=== PATIENT | male | born 1980 | race Caucasian/White ===

== ENCOUNTER 2017-08-27 15:11 | Emergency (ER) | payer MEDICAID, SELFPAY ==
[2017-08-27 15:12] VITALS: BP 152/74; PULSE 65; RESP 16; TEMP 36.7; O2SAT 98; BMI 25.1
[2017-08-27 15:43] VITALS: BP 115/74; BP 116/76; BP 122/79; PULSE 61; PULSE 64; PULSE 68
[2017-08-27] MEDS: 0.9% Normal Saline 1,000 ML 150 ML IV (15:50)
[2017-08-27 16:11] LABS: Absolute Lymphocyte Count 1.37 X10^3/ul (0.83-4.51); Absolute Neutrophil Count 5.1 X10^3/uL (2.0-7.7); Basophil# 0.03 X10^3/uL; Basophil% 0.4 % (0-1); Eosinophil# 0.05 X10^3/uL; Eosinophils% 0.7 % (0-5); Hematocrit 41.5 % (40-54); Lymphocyte # 1.37 X10^3/ul (4.0); Lymphocyte % 19.2 % (19-41); Mean Corp Hgb Conc 36.1 g/gl (32-36); Mean Corpuscular Hgb 32.8 pg (27.0-32.0); Mean Corpuscular Volume 90.8 fL (80-94); Mean Platelet Vol. 10.1 fl (6.2-12.0); Monocyte# 0.53 X10^3/uL; Monocyte% 7.4 % (0-10); Neutrophil # 5.13 X10^3/uL (2.7-7.7); Neutrophil % 72.2 % (47-70); Platelet Count 264 K/mm3 (150-450); RBC Distribution Width CV 11.4 % (11.6-14.6); RBC Distribution Width SD 37.7 fl (35.1-43.9); Red Blood Count 4.57 M/mm3 (4.6-6.2); White Blood Count 7.1 K/mm3 (4.4-11.0)
--- NOTE | 2017-08-27 16:11 | CT_ITS ---
STUDY: CT BRAIN WITHOUT CONTRAST REASON FOR EXAM: Male, 37 years old. Dizziness RADIATION DOSAGE (If Supplied By Facility): CTDIvol = ( 60.81 ) mGy, DLP = ( 1089.89 ) mGycm TECHNIQUE: Transaxial CT imaging of the brain was performed without administration of intravenous contrast material. Individualized dose optimization techniques were used for this CT. COMPARISON: None. FINDINGS: Normal soft tissue structures. Normal calvarium. Normal size ventricles and extra-axial spaces for the patient's age. Normal white matter tracts of the cerebral hemispheres. Normal basal ganglia and thalami. Normal brainstem. Normal cerebellum. There is no intracranial hemorrhage. There are no findings of an acute ischemic infarction. Normal visualized paranasal sinuses. CT/Brain/Head without Contrast IMPRESSION: Normal unenhanced CT scan of the brain. Electronically Signed: Shyam Aguilar MD at 16:32 EDT , Service support ,
[2017-08-27 16:19] LABS: POSITIVE COUNT NO; POSITIVE DIFFERENTIAL NO; POSITIVE MORPHOLOGY NO
[2017-08-27 16:23] LABS: Anion Gap 6 (5-15); BUN 10 mg/dL (7-18); BUN/Creat Ratio 10.3 RATIO (10-20); Calcium,Total 9.1 mg/dL (8.5-10.1); Chloride 108 mmol/L (98-107); Creatinine, Serum 0.97 mg/dL (0.70-1.30); EST Glomerular Filtration Rate 93 mL/min (>60); Est Glom Filt Rate - Afr Amer 113 mL/min (>60); Estimated Creatinine Clearance 105.28 ml/min; Glucose 97 mg/dL (74-106); Potassium 3.7 mmol/L (3.5-5.1); Sodium Level 140 mmol/L (136-145)
[2017-08-27 16:27] LABS: Amphetamine Urine VISTA NEGATIVE (<1000 ng/mL); Barbiturate Urine VISTA NEGATIVE (< 200 ng/mL); Benzodiazepine Urine VISTA NEGATIVE (< 200 ng/mL); Cocaine Urine VISTA NEGATIVE (< 300 ng/mL); Ecstacy Urine VISTA NEGATIVE (< 500 ng/mL); Methadone Urine VISTA NEGATIVE (< 300 ng/mL); PCP Urine VISTA NEGATIVE (< 25 ng/mL); THC Urine VISTA POSITIVE (< 50 ng/mL); Vista UDS pH Range 6
--- NOTE | 2017-08-27 16:46 | ED.DCSUM_ITS ---
- ER Visit Summary Date of Service: 08/27/17 Chief Complaint: [Dizziness and possible seizure] History of Present Illness: The patient is a 37 M [presents to the emergency department with complaint of dizziness. Patient states that last weekend patient had had an argument with his live-in girlfriend and went out with some friends who offered him crystal meth. Patient normally does not use illicit drugs other than occasional marijuana. Patient states that he did 7-10 lines of the crystal meth and then was unable to sleep all night. The next day he was not feeling well and complained of dizziness. His girlfriend noted that at one point he got up to plug in his phone and his arm started twitching and flapping. Patient laid on the ground and twitched for several minutes. Afterwards he was somewhat confused but complained of his hands and fingers being curled in and he remembers crying. Patient did not soil himself. Patient did not bite his tongue or the inside of his mouth. Patient does not have a history of seizures. Yesterday patient felt really good however today he had some episodes of feeling somewhat lightheaded and dizzy. Patient states that he just does not quite feel right and wanted to get checked out because he is not sure if he is just really anxious or stressed out about what may have happened.] Physical Examination: [HEENT-PERRLA, EOMI. Cranial nerves II through XII grossly intact. TMs clear. Mucous membranes moist. No adenopathy. Cardiovascular-regular rate and rhythm without murmur or ectopy Lungs-clear to auscultation, chest wall stable without crepitus or subcu emphysema Abdomen-normoactive bowel sounds, soft, nontender, no rebound or rigidity, no peritoneal signs. Neuro [id number] and heel perez testing within normal limits, negative Romberg, negative pronator drift, fundi benign Extremities-intact ?4, normal range of motion, normal pulses, atraumatic] Test Results: [CT scan of the brain without contrast was normal. CBC with differential was normal. Chemistries were normal. Toxicology screen was positive only for marijuana. Orthostatic vital signs were negative.] Emergency Department Course and Treatment: [None indicated]. At this point I am not convinced the patient had a seizure. It is possible he may have had a vagal episode and possibly syncopal episode. Patient has not had another episode like that. Patient advised to discontinue illicit drug use. Treatment Plan: [Patient advised to follow-up with his primary care physician within the next 3-5 days. Patient will be given a referral to neurology as well should he have another similar episode.] Disposition: [Discharged home in stable condition. Patient advised to return if repeat episode or condition should worsen in any way.] Impression: [Dizziness-etiology uncertain Illicit drug use ] This note was generated with [employer] dictation software. It may contain incorrect words, spelling, and punctuation that were not noted in review of the chart prior to signing ED Disposition - Plan for ED Patient: Chief Complaint: General Illness Referrals: Roger Jerez MD [Primary Care Provider] -
--- NOTE | 2017-08-27 16:46 | ED.DEP ---
ED Disposition - Plan for ED Patient: Chief Complaint: General Illness Instructions: ED Dizziness [facility], ED Drug Abuse General Referrals: Roger Jerez MD [Primary Care Provider] - 5-7 Days Domingo Cain MD [STAFF PHYSICIAN] - 5-7 Days
== END 2017-08-27 17:02 | disposition home or self-care (01) ==
LOC: ED 15:32
PROVIDERS: Emergency Provider Emergency Medicine; Family Provider Family Medicine; PCP Family Medicine
DX: R42 Dizziness and giddiness (principal); F15.90 Other stimulant use, unspecified, uncomplicated; F12.90 Cannabis use, unspecified, uncomplicated
CPT/HCPCS: 70450; 80048; 80307; 85025; 96360; 99284; J7030; A4216

== ENCOUNTER → 2018-09-14 | Outpatient (CLI) | payer MEDICAID, SELFPAY ==
--- NOTE | 2018-09-14 08:15 | RAD_ITS ---
PROCEDURE: Fluoroscopic guided Hip Injection DATE: September 14, 2018. INDICATION: Male, 38 years old. Chronic hip pain. PHYSICIAN: Marcus Tracy M.D. MEDICATIONS: 40 mg of Kenalog and 4 cc of 1% lidocaine. 2% Lidocaine administered subcutaneously for local anesthesia. ACCESS SITE: Right hip. NEEDLE: 22-gauge spinal needle. FLUOROSCOPY TIME (if supplied): (0:30) minutes/seconds FINDINGS: The risks, benefits, and alternatives to the procedure were explained to the patient. The specific risks of bleeding, infection, and neurovascular injury were detailed and accepted. Witnessed informed consent was obtained. A 22-gauge spinal needle was positioned under radiographic fluoroscopic localization. Approximately 2 cc of Isovue-300 instilled for localization purposes. Medication was then injected. The patient tolerated the procedure well without any immediate complications. RAD/Inj/Asp Eric Jt Should/Hip/Knee IMPRESSION: 1. Successful fluoroscopic guided hip injection. Electronically Signed: Marcus Tracy, at 10:41 EDT , Service support ,
== END | disposition home or self-care (01) ==
LOC: RAD 08:09
PROVIDERS: Family Provider Family Medicine; PCP Family Medicine; Referring Provider Family Medicine; Visit Provider Family Medicine
DX: Q65.89 Other specified congenital deformities of hip (principal)
CPT/HCPCS: 20610; 77002; Q9965

== ENCOUNTER 2021-01-22 09:36 | Emergency (ER) | payer MEDICAID, SELFPAY ==
[2021-01-22 09:36] VITALS: BP 124/85; PULSE 67; RESP 16; TEMP 36.8; O2SAT 100; BMI 25.1
--- NOTE | 2021-01-22 10:00 | CT_ITS ---
STUDY: CT CERVICAL SPINE WITHOUT CONTRAST REASON FOR EXAM: Male, 40 years old. Hyperextension injury, BUE neuro sx RADIATION DOSAGE (If Supplied By Facility): CTDIvol = ( 22.63 ) mGy, DLP = ( 538.35 ) mGycm TECHNIQUE: High resolution transaxial imaging was performed without contrast material. Sagittal and coronal images were reconstructed. Individualized dose optimization techniques were used for this CT. COMPARISON: None FINDINGS: Normal craniovertebral junction. Normal anterior atlantoaxial articulation. Normal odontoid process. There is straightening of the normal cervical lordosis. Normal vertebral bodies and posterior osseous elements. C2-3: Normal endplates. Normal disc height and morphology. Normal central canal and intervertebral neuroforamina. C3-4: Normal endplates. Normal disc height and morphology. Normal central canal and intervertebral neuroforamina. C4-5: Mild degree of disc space narrowing. Anterior spondylosis. Uncovertebral arthrosis worse on the right side with a mild degree of right neural foraminal stenosis. C5-6: Mild degree of disc space narrowing. Mild degree of uncovertebral arthrosis. No significant neural foraminal stenosis is seen. C6-7: Normal endplates. Normal disc height and morphology. Normal central canal and intervertebral neuroforamina. C7-T1: Normal endplates. Normal disc height and morphology. Normal central canal and intervertebral neuroforamina. Normal visualized soft tissue structures. CT/Spine Cervical without Contras IMPRESSION: Multilevel degenerative changes, as described above. Straightening of the normal cervical lordosis. Electronically Signed: Marcus Tracy MD at 10:30 EDT , Service support ,
--- NOTE | 2021-01-22 10:00 | EDS_ITS ---
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 He was dazed from the blunt injury but does not think he lost consciousness. He was by himself. Ever since, he has felt paresthesias that are very painful on the dorsum of both forearms down to fingers 3 and 4 symmetrically bilaterally. It is painful just to barely touch these areas of the skin from the elbow down. 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 He has had no problems walking. The pain in his neck is very mild near the base of his neck. PFSH PFSH no medical history Home Medications gabapentin 100 mg PO TID #90 cap 01/22/21 [Rx Last Taken Unknown] Allergy/AdvReac Type Severity Reaction Status Date / Time Penicillins Allergy Rash Verified 01/22/21 09:39 Social History Smoking Status: Never smoker ROS ROS ED Constitutional Constitutional ED: Denies chills or fever(s) Eyes Eyes: Denies change in vision or diplopia ENT ENT ED: Denies rhinorrhea or sore throat Cardiovascular Cardiovascular: Denies chest pain or palpitations Respiratory/Chest Respiratory/Chest: Denies cough or dyspnea Gastrointestinal Gastrointestinal: Denies abdominal pain, diarrhea, nausea or vomiting Genitourinary Genitourinary ED: Denies dysuria or hematuria Musculoskeletal Musculoskeletal: Reports neck pain; Denies back pain Integumentary Denies abscess or rash Neurologic Neurologic: Reports as per HPI, paresthesias and weakness; Denies headache(s) Psychiatric Psychiatric: Denies anxiety or suicidal thoughts EXAM Physical Exam Const Vital Signs: 01/22/21 09:36 01/22/21 11:34 Temperature 98.3 F Temperature Source Temporal Pulse Rate 67 Respiratory Rate 16 Respiratory Effort Normal Respiratory Depth Normal Respiratory Pattern Normal Blood Pressure 124/85 H Blood Pressure Mean 98 Pulse Ox 100 Oxygen Delivery Method Room Air Room Air Positive well nourished and well developed General Appearance ED: well developed and NAD HEENT Reports moist mucous membranes normocephalic and atraumatic Eyes PERRL and EOMs intact bilaterally Neck full ROM and supple Neck Narrative: Mild tenderness base of cervical spine, no thoracic or lumbar midline tenderness. No paraspinal tenderness. No step-off or obvious signs of trauma. Resp normal respiratory effort and clear to auscultation bilaterally Cardio regular rate, regular rhythm and no murmurs GI non-tender and non-distended Auscultation: normoactive bowel sounds Palpation: soft Back/Spine no CVA tenderness General Back: other FROM Extremity normal to inspection Extremity Narrative: Superficial tenderness at the skin dorsal both forearms into fingers 3 and 4 bilaterally, skin normal in appearance. No bony tenderness. Full range of motion throughout all 4 extremities. General Extremety ED: Yes tenderness; Negative for edema or pulses abnormal General Extremity: Negative for edema or pulses abnormal Neuro oriented x3 and CN's II-XII intact bilaterally Neuro Narrative: Patient has decreased sensation along with tenderness in a C7 distribution bilaterally mostly from the elbows down distally. He has some weakness in technical supervisor and in triceps bilaterally symmetrically, 4+ for those groups. Otherwise strength is normal throughout. Able to stand on his toes and heels without difficulty. Negative Romberg. Sensorium / Orientation: awake and alert Skin no rashes or lesions noted and no wounds MDM MDM MDM Narrative Medical decision making narrative: Initially CT was performed, shows no fracture. I then discussed with radiologist who approved a stat MRI given his neurologic findings, this shows no focal lesion in the cord, but a osteophyte complex at C5-6 with the findings as below. I discussed with Dr. Grissom on for spine, he recommended sending the patient home after a dose of IV Decadron, on gabapentin 100 mg 3 times daily with close outpatient follow-up. Discussed with the patient, this will be the plan. Radiography Diagnostic Testing: Radiology Impression Cervical Spine CT 01/22/21 10:00 IMPRESSION: Multilevel degenerative changes, as described above. Straightening of the normal cervical lordosis. Electronically Signed: Marcus Tracy MD at 10:30 EDT , Service support , Cervical Spine MRI 01/22/21 10:44 IMPRESSION: Focal degenerative disc disease asymmetric to the right at C5/C6 as described above. Electronically Signed: Geo Ortez MD at 12:57 EDT Tel , Service support , STUDY: MRI CERVICAL SPINE WITHOUT CONTRAST REASON FOR EXAM: Male, 40 years old. neck injury, numbness/weakness BUE TECHNIQUE: Standardized fat and water weighted pulse sequences were obtained in the sagittal and axial planes. COMPARISON: CT earlier today FINDINGS: Normal foramen magnum and brainstem-cervical cord junction. Normal craniovertebral junction. Normal anterior atlantoaxial articulation. Normal odontoid process. Normal cervical lordosis. Normal vertebral bodies and posterior osseous elements. C2-3: Normal endplates. Normal disc height, signal and morphology. Normal central canal and intervertebral neural foramina. C3-4: Normal endplates. Normal disc height, signal and morphology. Normal central canal and intervertebral neural foramina. C4-5: Normal endplates. Normal disc height, signal and morphology. Normal central canal and intervertebral neural foramina. C5-6: Moderate bilobed disc osteophyte complex asymmetric to the right produces moderate spinal stenosis with effacement of the right hemicord and moderate bilateral neural foraminal stenosis. C6-7: Normal endplates. Normal disc height, signal and morphology. Normal central canal and intervertebral neural foramina. C7-T1: Normal endplates. Normal disc height, signal and morphology. Normal central canal and intervertebral neural foramina. Normal cervical cord. Normal visualized soft tissue structures. 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
--- NOTE | 2021-01-22 10:44 | MRI_ITS ---
STUDY: MRI CERVICAL SPINE WITHOUT CONTRAST REASON FOR EXAM: Male, 40 years old. neck injury, numbness/weakness BUE TECHNIQUE: Standardized fat and water weighted pulse sequences were obtained in the sagittal and axial planes. COMPARISON: CT earlier today FINDINGS: Normal foramen magnum and brainstem-cervical cord junction. Normal craniovertebral junction. Normal anterior atlantoaxial articulation. Normal odontoid process. Normal cervical lordosis. Normal vertebral bodies and posterior osseous elements. C2-3: Normal endplates. Normal disc height, signal and morphology. Normal central canal and intervertebral neural foramina. C3-4: Normal endplates. Normal disc height, signal and morphology. Normal central canal and intervertebral neural foramina. C4-5: Normal endplates. Normal disc height, signal and morphology. Normal central canal and intervertebral neural foramina. C5-6: Moderate bilobed disc osteophyte complex asymmetric to the right produces moderate spinal stenosis with effacement of the right hemicord and moderate bilateral neural foraminal stenosis. C6-7: Normal endplates. Normal disc height, signal and morphology. Normal central canal and intervertebral neural foramina. C7-T1: Normal endplates. Normal disc height, signal and morphology. Normal central canal and intervertebral neural foramina. Normal cervical cord. Normal visualized soft tissue structures. MRI/Spine Cervical (Routine) IMPRESSION: Focal degenerative disc disease asymmetric to the right at C5/C6 as described above. Electronically Signed: Geo Ortez MD at 12:57 EDT Tel , Service support ,
[2021-01-22] MEDS: dexAMETHasone 4 MG Tablet PO (13:45)
[2021-01-22 13:47] VITALS: BP 132/67; PULSE 71; RESP 16; O2SAT 98
== END 2021-01-22 13:48 | disposition home or self-care (01) ==
PROVIDERS: Emergency Provider Emergency Medicine; PCP Family Medicine
DX: S14.126A Central cord syndrome at C6 level of cervical spinal cord, initial encounter (principal); W01.198A Fall on same level from slipping, tripping and stumbling with subsequent striking against other object, initial encounter
CPT/HCPCS: 72125; 72141; 99283

== ENCOUNTER 2024-02-21 15:56 | Emergency (ER) | payer MEDICAID, SELFPAY ==
[2024-02-21 15:57] VITALS: BP 100/61; PULSE 66; RESP 19; TEMP 36; O2SAT 97; BMI 20.4
--- NOTE | 2024-02-21 16:56 | EX.ED.VIS.UR ---
HPI HPI - URI History of Present Illness Chief Complaint: Ear Problem Detail of Chief Complaint: Cannot hear out of his left ear. Began today. Informant: patient Onset/Context/Timing Onset: Today Context: Gradual Onset Timing: Continuous Current Severity: Mild Maximum Severity: Mild Narrative Narrative: 43-year-old male no seen past medical history. Says he cannot hear out of his left ear today. Prior history with cerumen impaction. Denies any trauma. No earache. No sore throat. No other complaints. Prior similar symptoms: Yes Recent Illness/Hospitalization: No ROS ROS ED ROS Narrative Denies recent illness. Constitutional Constitutional ED: Denies fever(s) Eyes Eyes: Denies blurry vision ENT ENT ED: Denies ear pain, rhinorrhea or sore throat Cardiovascular Cardiovascular: Denies chest pain Respiratory/Chest Respiratory/Chest: Denies cough Gastrointestinal Gastrointestinal: Denies abdominal pain Genitourinary Genitourinary ED: Denies dysuria Musculoskeletal Musculoskeletal: Denies arthralgias Integumentary Denies abscess Neurologic Neurologic: Denies headache(s) Psychiatric Psychiatric: Denies anxiety Endocrine Endocrinology: Denies cold intolerance Hematologic/Lymphatic Hematologic/Lymphatic: Denies easy bleeding Allergic/Immunologic Allergic/Immunologic ED: Denies mouth swelling PFSH PFSH no medical history Home Medications ?Medication ?Instructions ?Recorded ?Last Taken ?Type gabapentin 100 mg capsule 100 mg PO TID #90 caps 01/22/21 Unknown Rx Allergy/AdvReac Type Severity Reaction Status Date / Time Penicillins Allergy Rash Verified 02/21/24 15:58 no surgical history Social History Smoking Status: Never smoker EXAM Physical Exam Narrative Exam Narrative: 43-year-old male vital signs stable afebrile. No acute distress. H EENT exam right ear canal unremarkable minimal wax. Posterior pharynx normal. No erythema or exudate. Left ear canal is obstructed by sticky wax. Canal otherwise unremarkable I cannot see the eardrum due to the wax. Nontender. Neck nontender no lymphadenopathy. Lungs clear. Heart regular rate and rhythm. Otherwise exam unremarkable. Const Vital Signs: 02/21/24 15:57 Temperature 96.8 F L Temperature Source Temporal Pulse Rate 66 Respiratory Rate 19 H Blood Pressure 100/61 Blood Pressure Mean 74 Pulse Ox 97 Oxygen Delivery Method Room Air Positive well nourished and well developed; Negative for obese, cachectic or contractures General Appearance ED: well developed and NAD; Negative for cachectic, contractures, cyanotic, diaphoretic or pallor Nutritional Appearance: Negative for cachectic or obese HEENT Reports moist mucous membranes HEENT Narrative: Left ear canal obstructed by wax. normocephalic and atraumatic; Negative for scalp tenderness Face and Sinus: Negative for sinus tenderness or maxillary instability Throat: posterior oropharynx normal Eyes PERRL and EOMs intact bilaterally Neck no lymphadenopathy, supple, no meningeal signs and no JVD Resp normal respiratory effort and clear to auscultation bilaterally Cardio S1 normal heart sound, S2 normal heart sound and no murmurs Rate: regular rate Rhythm: regular rhythm GI non-tender, non-distended and no masses Inspection: Negative for abdominal distention Auscultation: normoactive bowel sounds Palpation: soft; Negative for tender, guarding, hepatomegaly, splenomegaly or mass Back/Spine no CVA tenderness and normal ROM General Back: Negative for CVA tenderness Cervical Spine: Negative for cervical spine tenderness Thoracic Spine / Upper Back: Negative for thoracic spinal tenderness Lumbar Spine / Lower Back: Negative for lumbar spinal tenderness Sacrum: Negative for tenderness Extremity normal to inspection and full ROM General Extremety ED: Negative for cyanosis or tenderness General Extremity: Negative for cyanosis Neuro oriented x3 and CN's II-XII intact bilaterally Sensorium / Orientation: alert, oriented to person, oriented to place and oriented to time; Negative for orientation impaired or lethargic Motor Exam: strength 5/5 throughout Psych mental status grossly normal Appearance: Negative for other Attitude: No agitated Mood & Affect: Negative for depressed, anxious or tearful Skin General Skin Exam: Negative for jaundice or pallor Lesions: no lesions Rashes: no rashes MDM MDM MDM Narrative Medical decision making narrative: 43-year-old male left earwax impaction. We discharged home with Debrox. It is the sticky wax I do not think this will irrigate well. Use Debrox at home. Follow-up if it does not resolve. History & Record Review Discussion w/independent historian: Patient Discharge Plan Triage Chief Complaint: Ear Problem ED Provider: Helder Adame Dx/Rx/DC Orders Clinical Impression: Cerumen impaction Instructions: Impacted Earwax Prescriptions: No Action gabapentin 100 mg capsule 100 mg PO TID Qty: 90 0RF Primary Care Provider: Roger Jerez Referrals: Roger Jerez MD [Primary Care Provider] - Junito Grover MD [Med Staff - Active Staff] - 3-5 Days if not improving Activity Restrictions/Additional Instructions: Use the Debrox eardrops to your left ear 3 to 5 drops 3-4 times a day. This should help dry up the wax up and come out. If it did not improve follow-up with ENT and they can irrigated out. Print Language: Macedonian Disposition Disposition: Home, Self Care
[2024-02-21] MEDS: Carbamide Peroxide 15 ML Bottle 5 DRP OTIC (17:06)
[2024-02-21 17:08] VITALS: BP 110/76; PULSE 69; RESP 14; TEMP 36.1; O2SAT 100
== END 2024-02-21 17:10 | disposition home or self-care (01) ==
LOC: ED 17:00
PROVIDERS: Emergency Provider Emergency Medicine; PCP Family Medicine; Visit Provider Emergency Medicine
DX: H61.22 Impacted cerumen, left ear (principal)
CPT/HCPCS: 99282